=== PATIENT | female | born 1975 | race Caucasian/White ===

== ENCOUNTER → 2018-01-17 | Outpatient (CLI) | payer BC ==
[~2018-01-17] MED LIST: AA/A14DR7 OT; ACE3 PO; AMO875; FERR325C2 PO; IBU600 PO; LOR5 PO
--- NOTE | 2018-01-17 14:21 | RADIOLOGY IMAGING REPORT ---
FACILITY: [facility] PATIENT NAME: SKY LYLES : [id number] MR: [id number] V: [id number] EXAM DATE: ORDERING PHYSICIAN: ZHANG MCGRATH TECHNOLOGIST: Aydee Burnham PROCEDURE:BILATERAL DIGITAL SCREENING MAMMOGRAM COMBINATION WITH TOMOGRAPHY WITH CAD ASSISTED INTERPRETATION & 3D TOMOSYNTHESIS COMPARISON:This is a baseline mammogram. INDICATIONS: FAMILY HISTORY OF BREAST CARCINOMA IN MATERNAL AUNT. VIEWS OBTAINED: Bilateral 2D full field CC & MLO & corresponding 3D tomography TISSUE DENSITY: Predominantly fatty tissue. FINDINGS: There is no dominant mass, suspicious microcalcifications, or architectural distortions in either breast. DIAGNOSTIC CATEGORY 1--NEGATIVE. RECOMMENDATIONS: ANNUAL BILATERAL SCREENING MAMMOGRAM. IMPRESSION: BIRADS 1: Negative Dictated by: Doreen Chiang M.D. on 01/17/2018 at 11:52 Transcribed by: BECCA on 01/17/2018 at 13:40 Approved by: Doreen Chiang M.D. on 01/17/2018 at 14:21 [facility]
== END ==
LOC: MAMO 03:03
PROVIDERS: ATTEND Obstetrics & Gynecology
DX: Z12.31 Encounter for screening mammogram for malignant neoplasm of breast (principal)
CPT/HCPCS: 77063; 77067

== ENCOUNTER → 2018-07-22 | Outpatient (CLI) | payer BC | LOC: LAB 11:14 | PROVIDERS: ATTEND Obstetrics & Gynecology | DX: N92.1 Excessive and frequent menstruation with irregular cycle (principal) | CPT/HCPCS: 36415; 84443; 85027 ==